=== PATIENT | male | born 1960 | race Caucasian/White ===

== ENCOUNTER 2018-09-27 08:46 | Observation (INO) ==
[2018-09-27] MEDS ORDERED: ASPIRIN 325 MG TABLET PO STA (10:19)
[2018-09-27 11:00] LABS: Basophils # 0.1 10*3/uL (0.0-0.2); Basophils % 1.1 % (0.0-0.8); Eosinophils # 0.3 10*3/uL (0.0-0.87); Eosinophils % 4.8 % (0.00-10.9); Hemoglobin 15.1 GM/DL (14.0-18.0); Immature Granulocytes % 0.3 %; Immature Granulocytes Absolute 0.02 #; Lymphocytes # 2.6 10*3/uL (1.4-4.0); Lymphocytes % 36.2 % (21.2-54.2); Mean Corpuscular HGB Conc 33.6 GM/DL (32-36); Mean Corpuscular Hemoglobin 31 PG (27-34); Mean Corpuscular Volume 91.3 FL (87-102); Mean Platelet Volume 10.9 FL (9.6-12.0); Monocytes # 0.6 10*3/uL (0.11-0.8); Monocytes % 7.9 % (1.7-12.7); Neutrophils # 3.5 10*3/uL (1.4-7.4); Neutrophils % 49.7 % (38.7-73.9); Platelet Count 305 T/CUMM (130-400); Red Blood Count 4.93 MC/CUMM (3.8-5.5); Red Cell Distribution Width 12.7 % (9.3-17.3); White Blood Count 7.1 T/CUMM (4-12)
[2018-09-27 11:16] LABS: Calcium 9.1 MG/DL (8.5-10.1); Osmolality,Calculated 275.8 MOS/KG (273-304); Potassium 4.3 MMOL/L (3.5-5.1)
[2018-09-27] MEDS ORDERED: KETOROLAC 30 MG/1 ML VIAL IV STA (11:43)
[2018-09-27] MEDS ORDERED: ONDANSETRON 4 MG/2 ML VIAL IV PRN (11:47)
[2018-09-27] MEDS ORDERED: ACETAMINOPHEN 325 MG TABLET PO PRN (11:47)
[2018-09-27] MEDS ORDERED: DICYCLOMINE 20 MG TABLET PO PRN (11:51)
[2018-09-27] MEDS: GABAPENTIN 300 MG CAPSULE PO SCH (20:44)
[2018-09-27] MEDS: DOCUSATE SODIUM 100 MG CAPSULE PO SCH (20:44)
[2018-09-28 05:01] LABS: Calcium 8.3 MG/DL (8.5-10.1); Osmolality,Calculated 284.4 MOS/KG (273-304)
[2018-09-28] MEDS ORDERED: PANTOPRAZOLE 40 MG TABLET PO SCH ×2 (09:00)
[2018-09-28] MEDS ORDERED: NEBIVOLOL 10 MG TABLET PO SCH (09:00)
[2018-09-28] MEDS ORDERED: ATORVASTATIN 20 MG TABLET PO SCH (09:00)
[2018-09-28] MEDS ORDERED: FENOFIBRATE 145 MG TABLET PO SCH (09:00)
[2018-09-28] MEDS: DOCUSATE SODIUM 100 MG CAPSULE PO SCH (10:37)
[2018-09-28] MEDS: GABAPENTIN 300 MG CAPSULE PO SCH (10:38)
[2018-09-28] MEDS ORDERED: CARVEDILOL 3.125 MG TABLET PO SCH (12:30)
[2018-09-28] MEDS ORDERED: LOSARTAN 50 MG TABLET PO SCH (12:30)
[2018-09-28] MEDS ORDERED: FUROSEMIDE 20 MG TABLET PO PRN (13:46)
[2018-09-28 18:04] VITALS: BP 151/74
== END 2018-09-28 18:10 | disposition home or self-care (01) ==
LOC: N.ED 08:46 → N.EDINP 08:46 → N.TELES 13:08
PROVIDERS: ADMIT Family Medicine; ATTEND Family Medicine

== ENCOUNTER 2019-11-12 17:42 | Observation (INO) ==
[2019-11-12] MEDS ORDERED: ONDANSETRON 4 MG/2 ML VIAL IV STA (18:07)
[2019-11-12] MEDS ORDERED: METOCLOPRAMIDE 10 MG/2 ML VIAL IV STA ×2 (18:07→20:03)
[2019-11-12] MEDS ORDERED: PANTOPRAZOLE 40 MG VIAL IV STA (18:07)
[2019-11-12 18:18] LABS: Basophils # 0.1 10*3/uL (0.0-0.2); Basophils % 0.6 % (0.0-0.8); Eosinophils # 0.4 10*3/uL (0.0-0.87); Eosinophils % 3.8 % (0.00-10.9); Hematocrit 42.2 VOL% (42.0-52.0); Hemoglobin 14.2 GM/DL (14.0-18.0); Immature Granulocytes % 0.2 %; Immature Granulocytes Absolute 0.02 #; Lymphocytes % 37.3 % (21.2-54.2); Mean Corpuscular HGB Conc 33.6 GM/DL (32-36); Mean Corpuscular Volume 91.5 FL (87-102); Mean Platelet Volume 10.5 FL (9.6-12.0); Monocytes % 6.5 % (1.7-12.7); Neutrophils % 51.6 % (38.7-73.9); Platelet Count 293 T/CUMM (130-400); Red Blood Count 4.61 MC/CUMM (3.8-5.5); Red Cell Distribution Width 12.7 % (9.3-17.3); White Blood Count 10.8 T/CUMM (4-12)
[2019-11-12 18:30] LABS: PT Patient Result 10.6 SECS (9.6-12.2); Partial Thromboplastin Time 28.6 SECS (20.8-36.0)
[2019-11-12 18:42] LABS: Amylase 39 U/L (25-115); Troponin I < 0.015 NG/ML (0.00-0.045)
[2019-11-12 19:31] LABS: Albumin 4.2 G/DL (3.4-5.0); Bilirubin,Total 0.4 MG/DL (0.2-1.0); Calcium 9.4 MG/DL (8.5-10.1); Total Protein 7.3 G/DL (6.4-8.3)
[2019-11-12] MEDS ORDERED: ACETAMINOPHEN 500 MG TABLET PO PRN (20:03)
[2019-11-12] MEDS ORDERED: ONDANSETRON 4 MG/2 ML VIAL IV PRN (20:03)
[2019-11-12] MEDS ORDERED: DICYCLOMINE 20 MG TABLET PO PRN (21:04)
[2019-11-12] MEDS: SODIUM CHLORIDE 0.9% 1,000 ML IV SCH (21:59)
[2019-11-12] MEDS: GABAPENTIN 300 MG CAPSULE PO SCH (22:01)
[2019-11-13] MEDS: FEXOFENADINE 180 MG TABLET PO SCH (03:25)
[2019-11-13] MEDS: FENOFIBRATE 145 MG TABLET PO SCH (03:26)
[2019-11-13] MEDS: PANTOPRAZOLE 40 MG TABLET PO SCH (03:26)
[2019-11-13] MEDS: carvediloL 6.25 MG TABLET PO SCH (03:26)
[2019-11-13] MEDS: ATORVASTATIN 10 MG TABLET PO SCH (03:26)
[2019-11-13] MEDS: LOSARTAN 50 MG TABLET PO SCH (03:26)
[2019-11-13 03:39] LABS: Apearance,Urine CLEAR (Clear); Bilirubin,Urine Negative (Negative); Blood, Urine Negative (Negative); Glucose,Urine (UA) Negative (Negative); Hyaline Casts,Urine 1 /LPF (0-3); Ketones,Urine Negative (Negative); Mucus,Urine Occasional /LPF (Occasional); Nitrite,Urine Negative (Negative); Protein,Urine Negative; RBC,Urine <1 /HPF (0-4); Urine Color Yellow (Yellow); Urine Specific Gravity 1.027 (1.001-1.035); Urine Urobilinogen < 2.0 EU/DL (0.2-1.0); WBC,Urine 1 /HPF (0-6)
[2019-11-13 05:15] LABS: Basophils # 0.1 10*3/uL (0.0-0.2); Eosinophils # 0.3 10*3/uL (0.0-0.87); Hematocrit 39.7 VOL% (42.0-52.0); Immature Granulocytes % 0.4 %; Immature Granulocytes Absolute 0.03 #; Lymphocytes # 3.1 10*3/uL (1.4-4.0); Lymphocytes % 36.7 % (21.2-54.2); Mean Corpuscular HGB Conc 32.7 GM/DL (32-36); Mean Corpuscular Volume 93.2 FL (87-102); Mean Platelet Volume 10.6 FL (9.6-12.0); Monocytes % 8.3 % (1.7-12.7); Neutrophils % 49.6 % (38.7-73.9); Platelet Count 263 T/CUMM (130-400); Red Blood Count 4.26 MC/CUMM (3.8-5.5); Red Cell Distribution Width 12.7 % (9.3-17.3); White Blood Count 8.3 T/CUMM (4-12)
[2019-11-13] MEDS ORDERED: PANTOPRAZOLE 40 MG TABLET PO SCH (09:00)
[2019-11-13 09:21] LABS: Risk Ratio 5.12; VLDL CHOLESTEROL 62.8 MG/DL
[2019-11-13] MEDS: GABAPENTIN 300 MG CAPSULE PO SCH ×3 (10:01→20:36)
[2019-11-13] MEDS ORDERED: carvediloL 12.5 MG TABLET PO SCH (16:00)
[2019-11-13] MEDS: SODIUM CHLORIDE 0.9% 1,000 ML IV SCH (16:44)
[2019-11-14] MEDS: FEXOFENADINE 180 MG TABLET PO SCH (04:02)
[2019-11-14] MEDS: carvediloL 6.25 MG TABLET PO SCH (04:02)
[2019-11-14] MEDS: LOSARTAN 50 MG TABLET PO SCH (04:03)
[2019-11-14] MEDS: PANTOPRAZOLE 40 MG TABLET PO SCH (04:03)
[2019-11-14] MEDS: FENOFIBRATE 145 MG TABLET PO SCH (04:03)
[2019-11-14] MEDS: ATORVASTATIN 10 MG TABLET PO SCH (04:03)
[2019-11-14 05:45] LABS: Basophils # 0.1 10*3/uL (0.0-0.2); Basophils % 0.8 % (0.0-0.8); Eosinophils # 0.4 10*3/uL (0.0-0.87); Eosinophils % 4.8 % (0.00-10.9); Hematocrit 38.5 VOL% (42.0-52.0); Hemoglobin 12.9 GM/DL (14.0-18.0); Immature Granulocytes % 0.4 %; Immature Granulocytes Absolute 0.03 #; Lymphocytes # 3.1 10*3/uL (1.4-4.0); Mean Corpuscular HGB Conc 33.5 GM/DL (32-36); Mean Corpuscular Volume 92.8 FL (87-102); Mean Platelet Volume 10.3 FL (9.6-12.0); Monocytes % 7.9 % (1.7-12.7); Neutrophils % 44.1 % (38.7-73.9); Platelet Count 244 T/CUMM (130-400); Red Blood Count 4.15 MC/CUMM (3.8-5.5); Red Cell Distribution Width 12.6 % (9.3-17.3); White Blood Count 7.4 T/CUMM (4-12)
[2019-11-14 05:54] LABS: INR 0.9; PT Patient Result 10.1 SECS (9.6-12.2)
[2019-11-14] MEDS ORDERED: SODIUM PHOSPHATE ENEMA 133 ML BOTTLE RECTAL ONE (06:00)
[2019-11-14 06:12] LABS: Calcium 8.4 MG/DL (8.5-10.1); Osmolality,Calculated 280.4 MOS/KG (273-304)
[2019-11-14] MEDS ORDERED: LACTATED RINGERS 1,000 ML IV SCH (08:00)
[2019-11-14] MEDS: GABAPENTIN 300 MG CAPSULE PO SCH (08:27)
[2019-11-14] MEDS ORDERED: LIDOCAINE 2% 5 ML VIAL ONE (09:00)
[2019-11-14] MEDS ORDERED: propofoL 200 MG/20 ML VIAL IV ONE (09:00)
[2019-11-14] MEDS ORDERED: ONDANSETRON 4 MG/2 ML VIAL ONE (12:13)
[2019-11-14 13:53] VITALS: BP 132/76
== END 2019-11-14 15:05 | disposition home or self-care (01) ==
LOC: N.EDINP 17:42 → N.ED 17:42 → N.EDINP 20:50 → N.2W 21:10
PROVIDERS: ADMIT Family Medicine; ATTEND Family Medicine